=== PATIENT | male | born 1950 | race Caucasian/White ===

== ENCOUNTER 2016-10-28 15:57 | Emergency (ER) | payer BC ==
[2016-10-28] MEDS ORDERED: Sodium Chloride 0.9% 10 ML Syringe FLUSH PRN ×2 (16:05→16:29)
[2016-10-28] MEDS ORDERED: HYDROmorphone 1 MG/ML Syringe IVPUSH ONE (16:16)
[2016-10-28] MEDS ORDERED: Iopamidol 755 MG/ML 50 ML Bottle IVPUSH ONE (16:29)
[2016-10-28] MEDS ORDERED: Iopamidol 755 Mg/ML 100 ML Bottle IVPUSH ONE (16:29)
[2016-10-28] MEDS ORDERED: Sodium Chloride 0.9% 1,000 ML IV ONE (16:53)
--- NOTE | 2016-10-28 17:09 | EDM.PDOC ---
ED HPI GENERAL MEDICAL PROBLEM - General Chief Complaint: Trauma Stated Complaint: INJKURED HEAD AND BACK Time Seen by Provider: 10/28/16 16:04 Source of Information: Reports: Patient History Limitations: Reports: No Limitations - History of Present Illness INITIAL COMMENTS - FREE TEXT/NARRATIVE: 66-year-old male presents for evaluation treatment of injuries sustained from a fall. Injury occurred prior to arrival in the ER. Patient was approximately 8- 10 feet off a ladder onto the ground. Reports he fell backwards onto his back onto some concrete. He has a laceration to his right posterior parietal scalp and left elbow. He is complaining of pain across his lower back. Denies any loss of consciousness, nausea, vomiting, neck pain, chest pain, shortness of breath or abdominal pain. unsure of last tetanus. C-collar applied upon arrival to the ER. Trauma alert minor called. Location: Reports: Back Associated Symptoms: Denies: Chest Pain, Nausea/Vomiting, Shortness of Breath, Syncope Lower Back Pain Score (Numeric/FACES): 6 - Related Data Allergies Allergy/AdvReac Type Severity Reaction Status Date / Time amoxicillin [From Augmentin] AdvReac Headache Verified 10/29/16 07:04 clavulanic acid AdvReac Headache Verified 10/29/16 07:04 [From Augmentin] Home Meds: Home Meds . [No Known Home Meds] 10/28/16 [History] Past Medical History HEENT History: Reports: Impaired Vision Other HEENT History: wears corrective lenses - Past Surgical History Musculoskeletal Surgical History: Reports: Other (See Below) Other Musculoskeletal Surgeries/Procedures:: right total knee replacement Social & Family History - Tobacco Use Smoking Status *Q: Never Smoker Second Hand Smoke Exposure: No - Caffeine Use Caffeine Use: Reports: Coffee - Recreational Drug Use Recreational Drug Use: No Review of Systems - Review of Systems Review Of Systems: See Below Respiratory: Denies: Shortness of Breath Cardiovascular: Denies: Chest Pain GI/Abdominal: Denies: Abdominal Pain Musculoskeletal: Reports: Back Pain (mid to lower back). Denies: Neck Pain Skin: Reports: Wound (left elbow; right posterior parietal scalp) Neurological: Denies: Headache, Syncope ED EXAM, GENERAL - Physical Exam Exam: See Below Exam Limited By: No Limitations General Appearance: Alert, WD/WN, No Apparent Distress Eye Exam: Bilateral Eye: EOMI, PERRL Ears: Normal External Exam Nose: Normal Inspection, No Blood Throat/Mouth: Normal Inspection, Normal Lips, Normal Oropharynx, Normal Voice, No Airway Compromise Neck: Normal Inspection, Other (c-collar in place) Respiratory/Chest: No Respiratory Distress, Lungs Clear, Normal Breath Sounds Cardiovascular: Normal Peripheral Pulses, Regular Rate, Rhythm, No Murmur GI/Abdominal: Normal Bowel Sounds, Soft, Non-Tender Back Exam: Normal Inspection, Vertebral Tenderness (T12-L3) Extremities: Normal Inspection, Normal Range of Motion Neurological: Alert, Oriented, Normal Cognition Psychiatric: Normal Affect, Normal Mood Skin Exam: Warm, Dry, Other (1cm laceration to the left elbow; approximately 6cm "C" shaped laceration to the right posterior parietal scalp) ED TRAUMA PROCEDURES - Laceration/Wound Repair Right Posterior Head Lac/Wound Length In cm: 6 (approximatley 6 cm "C" shaped subcutaneous laceraiton ) Appearance: Subcutaneous, Irregular Distal NVT: Neuro & Vascular Intact, No Tendon Injury Anesthetic Type: Local Local Anesthesia - Lidocaine (Xylocaine): 1% Plain Local Anesthetic Volume: 4cc Skin Prep: Chlorhexidine (Hibiciens), Saline, Sterile Drape Exploration/Debridement/Repair: Wound Explored Closed With: Mitchell # of Sutures: 12 Sterile Dressing Applied: Nurse Tetanus Status Addressed: Yes Complications: No Left Posterior Elbow Lac/Wound Length In cm: 1 Appearance: Subcutaneous, Linear Distal NVT: Neuro & Vascular Intact, No Tendon Injury Local Anesthesia - Lidocaine (Xylocaine): 0.5% Plain, 1% Plain Local Anesthetic Volume: 2cc Skin Prep: Chlorhexidine (Hibiciens), Saline, Sterile Drape Exploration/Debridement/Repair: Wound Explored Closed With: Sutures Suture Size: 4-0 # of Sutures: 2 Suture Type: Nylon, Mattress Sterile Dressing Applied: Nurse Tetanus Status Addressed: Yes Complications: No Course - Vital Signs Last Recorded V/S: Last Vital Signs Temp 36.2 C 10/28/16 16:00 Pulse 87 10/28/16 17:03 Resp 18 10/28/16 17:03 BP 138/95 H 10/28/16 17:03 Pulse Ox 93 L 10/28/16 17:03 - Orders/Labs/Meds Labs: Laboratory Tests 08/22/17 08/22/17 08/22/17 Range/Units 16:10 16:10 16:10 WBC 7.75 (4.23-9.07) K/mm3 RBC 5.78 (4.63-6.08) M/mm3 Hgb 17.1 (13.7-17.5) gm/L Hct 48.2 (40.1-51.0) % MCV 83.4 (79.0-92.2) fl MCH 29.6 (25.7-32.2) pg MCHC 35.5 (32.2-35.5) g/dl RDW Std Deviation 39.5 (35.1-43.9) fL Plt Count 199 (163-337) K/mm3 MPV 9.3 L (9.4-12.3) fl Neut % (Auto) 61.6 (34.0-67.9) % Lymph % (Auto) 25.9 (21.8-53.1) % Jenkins % (Auto) 9.2 (5.3-12.2) % Eos % (Auto) 2.1 (0.8-7.0) Baso % (Auto) 0.4 (0.1-1.2) % Neut # (Auto) 4.78 (1.78-5.38) K/mm3 Lymph # (Auto) 2.01 (1.32-3.57) K/mm3 Jenkins # (Auto) 0.71 (0.30-0.82) K/mm3 Eos # (Auto) 0.16 (0.04-0.54) K/mm3 Baso # (Auto) 0.03 (0.01-0.08) K/mm3 PT 10.7 (8.0-13.0) SECONDS INR 0.98 APTT 23 (22-36) SECONDS Sodium 143 (136-145) mEq/L Potassium 3.5 (3.5-5.1) mEq/L Chloride 106 (98-107) mEq/L Carbon Dioxide 25 (21-32) mEq/L Anion Gap 15.5 H (5-15) BUN 21 H (7-18) mg/dL Creatinine 1.6 H (0.7-1.3) mg/dL Est Cr Clr Drug Dosing 44.53 mL/min Estimated GFR (MDRD) 44 (>60) mL/min BUN/Creatinine Ratio 13.1 L (14-18) Glucose 124 H (80-115) mg/dL Calcium 9.4 (8.5-10.1) mg/dL Total Bilirubin 1.4 H (0.2-1.0) mg/dL AST 28 (15-37) U/L ALT 40 (16-63) U/L Alkaline Phosphatase 66 (46-116) U/L Total Protein 7.0 (6.4-8.2) g/dl Albumin 4.1 (3.4-5.0) g/dl Globulin 2.9 gm/dL Albumin/Globulin Ratio 1.4 (1-2) Lipase 246 (73-393) U/L Urine Color (Yellow) Urine Appearance (Clear) Urine pH (5.0-8.0) Ur Specific [place] (1.005-1.030) Urine Protein (Negative) Urine Glucose (UA) (Negative) Urine Ketones (Negative) Urine Occult Blood (Negative) Urine Nitrite (Negative) Urine Bilirubin (Negative) Urine Urobilinogen (0.2-1.0) Ur Leukocyte Esterase (Negative) Urine RBC (0-5) /hpf Urine WBC (0-5) /hpf Ur Epithelial Cells (0-5) /hpf Urine Bacteria (FEW) /hpf Urine Mucus (FEW) /hpf 10/28/16 Range/Units 20:38 WBC (4.23-9.07) K/mm3 RBC (4.63-6.08) M/mm3 Hgb (13.7-17.5) gm/L Hct (40.1-51.0) % MCV (79.0-92.2) fl MCH (25.7-32.2) pg MCHC (32.2-35.5) g/dl RDW Std Deviation (35.1-43.9) fL Plt Count (163-337) K/mm3 MPV (9.4-12.3) fl Neut % (Auto) (34.0-67.9) % Lymph % (Auto) (21.8-53.1) % Jenkins % (Auto) (5.3-12.2) % Eos % (Auto) (0.8-7.0) Baso % (Auto) (0.1-1.2) % Neut # (Auto) (1.78-5.38) K/mm3 Lymph # (Auto) (1.32-3.57) K/mm3 Jenkins # (Auto) (0.30-0.82) K/mm3 Eos # (Auto) (0.04-0.54) K/mm3 Baso # (Auto) (0.01-0.08) K/mm3 PT (8.0-13.0) SECONDS INR APTT (22-36) SECONDS Sodium (136-145) mEq/L Potassium (3.5-5.1) mEq/L Chloride (98-107) mEq/L Carbon Dioxide (21-32) mEq/L Anion Gap (5-15) BUN (7-18) mg/dL Creatinine (0.7-1.3) mg/dL Est Cr Clr Drug Dosing mL/min Estimated GFR (MDRD) (>60) mL/min BUN/Creatinine Ratio (14-18) Glucose (80-115) mg/dL Calcium (8.5-10.1) mg/dL Total Bilirubin (0.2-1.0) mg/dL AST (15-37) U/L ALT (16-63) U/L Alkaline Phosphatase (46-116) U/L Total Protein (6.4-8.2) g/dl Albumin (3.4-5.0) g/dl Globulin gm/dL Albumin/Globulin Ratio (1-2) Lipase (73-393) U/L Urine Color Light yellow (Yellow) Urine Appearance Clear (Clear) Urine pH 5.5 (5.0-8.0) Ur Specific [place] 1.015 (1.005-1.030) Urine Protein Negative (Negative) Urine Glucose (UA) Negative (Negative) Urine Ketones Trace H (Negative) Urine Occult Blood Negative (Negative) Urine Nitrite Negative (Negative) Urine Bilirubin Negative (Negative) Urine Urobilinogen 0.2 (0.2-1.0) Ur Leukocyte Esterase Negative (Negative) Urine RBC Not seen (0-5) /hpf Urine WBC 0-5 (0-5) /hpf Ur Epithelial Cells 0-5 (0-5) /hpf Urine Bacteria Not seen (FEW) /hpf Urine Mucus Not seen (FEW) /hpf Meds: Medications Discontinued Medications Generic Name Dose Route Start Last Admin Trade Name Freq PRN Reason Stop Dose Admin Diphtheria/Tetanus/Acell Pertussis 0.5 ml 10/28/16 20:13 10/28/16 20:36 Adacel IM 10/28/16 20:14 0.5 ml .ONCE ONE Administration Hydromorphone HCl 1 mg 10/28/16 16:16 10/28/16 16:20 Dilaudid IVPUSH 10/28/16 16:17 1 mg ONETIME ONE Administration Hydromorphone HCl 0.5 mg 10/28/16 19:20 10/28/16 19:25 Dilaudid IVPUSH 10/28/16 19:21 0.5 mg ONETIME ONE Administration Sodium Chloride 1,000 mls @ 999 mls/hr 10/28/16 16:53 10/28/16 17:13 Normal Saline IV 10/28/16 17:53 999 mls/hr ONETIME ONE Administration Iopamidol 100 ml 10/28/16 16:29 10/28/16 16:55 Isovue-370 (76%) IVPUSH 10/28/16 16:30 100 ml ONETIME ONE Administration Lidocaine HCl 50 ml 10/28/16 18:09 10/28/16 19:00 Xylocaine 1% INJECT 10/28/16 18:10 50 ml ONETIME ONE Administration Sodium Chloride 10 ml 10/28/16 16:05 10/28/16 19:33 Saline Flush FLUSH 10 ml ASDIRECTED PRN Administration Keep Vein Open Sodium Chloride 10 ml 10/28/16 16:29 10/28/16 16:55 Saline Flush FLUSH 10 ml ONETIME PRN Administration IV FLUSH - Radiology Interpretation Free Text/Narrative:: CT of the head without contrast impression per Dr. Del Cid 1. Slight soft tissue swelling within the posterior scalp. 2. Air-fluid level within the right maxillary sinus with mild areas of mucosal thickening. Air-fluid level could relate to remained secretions although difficult to exclude sinusitis patient has correlating symptoms. 3. No acute intracranial abnormality identified. CT of the cervical spine without contrast impression per Dr. Del Cid 1. Degenerative change as noted. 2. No fracture or abnormal subluxation is seen on CT study of the cervical spine. CT of the thoracic spine without contrast impression per Dr. Del Cid 1. Slight degenerative change and other incidental findings. Nothing acute is seen on CT study of thoracic spine. CT of the chest with IV contrast impression per Dr. Del Cid 1. Incidental findings. Nothing acute is appreciated on CT study of the chest. CT of the abdomen and pelvis with IV contrast impression per Dr. Del Cid 1. Cyst within the liver and within the left kidney. Small hiatal hernia seen. 2. Other incidental findings. Nothing acute is appreciated on CT study of the abdomen and pelvis. 3. Fracture of L1 which is described on the CT lumbar spine exam. CT of the lumbar spine without contrast impression per Dr. Del Cid 1. Fracture within the she would body of L1 causing fairly severe anterior wedging. retorlisthesis posterior vertebral line is seen by about 8 mm there is causing mild central canal stenosis. Fracture does not appear to extend and posterior elements. Displaced anterior fragment by about 8 mm is seen on L1. 2. Slight degenerative changes noted. No other acute abnormality is appreciated. CT Results Date: 10/28/16 - Re-Assessments/Exams Free Text/Narrative Re-Assessment/Exam: 10/28/16 20:[address] Cristina, orthopedics. Dr. Cristina does not work on the spine. Consulted with Dr. Schultz, orthopedics in [place]. Recommended splinting with a TLSO, pain meds and follow-up with Dr. Schultz as soon as possible. After working with [facility] and other departments, we were unable to get a TLSO brace. We were able to get a Fernández brace. Scalp wound was repaired with mitchell. Elbow laceration was repaired with sutures. Patient tolerated the procedure well. No complications. Will discharge home with medication for pain and the Fernández brace. Call tomorrow to follow-up with Dr. Schultz. Departure - Departure Time of Disposition: 20:29 Disposition: Home, Self-Care 01 Condition: Fair Clinical Impression: L1 vertebral fracture - Discharge Information Instructions: Vertebral Fracture, Lumbar Fracture, Vertebral Fracture, Easy-to- Read Referrals: Heron Patel MD [Primary Care Provider] - Jermaine Schultz MD [Ordering Only Provider] - Forms: ED Department Discharge Additional Instructions: Prescription for Percocet 5- 325mg tabs #20. Prescription for cephalexin 500mg bid x 7 days Given through [facility]. Follow-up with Dr. Schultz as soon or too able to. Call tomorrow morning at 7 AM. Please let them know that you are in the [place] ER last night and have a fracture of L1. Please call [phone]. Please let them know that Dr. Schultz wanted to see you as soon as possible. he very well could see you tomorrow. Percocet 1-2 tabs every 4-6 hours as needed for pain. Do not drive or operate machinery within 12 hours of taking the Percocet. Percocet can be habit-forming , I recommend you take as few of these as needed to control your pain. Fernández brace on at all times. may only remove to shower. He must sleep in the brace. Wash the wounds with gentle soap and water twice a day. Have the mitchell removed in 7 days. Have the sutures removed in 10 days. He may follow-up with your primary care provider or the [facility] located on the side of the hospital is open 8 AM to 5 PM Thursday through Thursday. They will remove the mitchell on the sutures for free. Please call [phone] to schedule with a provider there. Take the cephalexin as prescribed. 1 tab twice a day for 7 days. You will have extra from [facility]. Please return to the ER immediately if your symptoms change or worsen.
--- NOTE | 2016-10-28 17:33 | CT ---
CT thoracic spine Technique: Multiple axial sections through the thoracic spine were obtained. Reconstructed sagittal and coronal images were reviewed. Findings: Vertebral body heights and disc spaces are fairly well preserved. No fracture is identified within the thoracic spine. Posterior ribs appear intact. Cyst is partially seen within the right lobe of the liver measuring roughly 3.2 cm. Mild endplate osteophytes are seen within the lower thoracic spine. No bony central or bony neural foraminal stenosis. No abnormal subluxation is identified. No paravertebral soft tissue swelling is seen. Impression: 1. Slight degenerative change and other incidental findings. Nothing acute is seen on CT study of the thoracic spine. Diagnostic code #2
--- NOTE | 2016-10-28 17:39 | CT ---
CT lumbar spine Technique: Multiple axial sections were obtained through the lumbar spine. Reconstructed sagittal and coronal images were obtained. Findings: Fracture is identified within L1. Fracture is comminuted and involves the vertebral body. There is retrolisthesis of the posterior vertebral line into the central canal by approximately 8 mm. This causes mild central canal stenosis. Anterior wedging is seen with a displaced anterior fragment by approximately 8.5 mm. No additional fracture is seen within the lumbar spine. Slight circumferential disc bulge noted at L3-4. Minimal retrolisthesis is noted of L2 on L3 due to degenerative apophyseal change. Circumferential disc bulge also noted at L2-3. Lesser degenerative change is seen within the apophyseal joints at L3-4. Impression: 1. Fracture within the vertebral body of L1 causing fairly severe anterior wedging. Retrolisthesis posterior vertebral line is seen by about 8 mm causing mild central canal stenosis. Fracture does not appear to extend into the posterior elements. Displaced anterior fragment by about 8.5 mm is seen of L1. 2. Slight degenerative change as noted above. No other acute abnormality is appreciated. Diagnostic code #5
--- NOTE | 2016-10-28 17:42 | CT ---
Head CT Technique: Multiple axial sections through the brain were obtained. Intravenous contrast was not utilized. Comparison: No previous study. Findings: Mild soft tissue swelling is seen posteriorly within the scalp. Ventricles along the basal cisterns and sulci over the convexities are within normal limits for the patient's age. No abnormal parenchymal densities are seen. No evidence of intracranial hemorrhage. No midline shift or mass effect is seen. Bone window settings were reviewed which shows air-fluid level within the right maxillary sinus. Mild mucosal thickening is seen within both maxillary sinuses. Minimal mucosal thickening is noted within the ethmoid sinuses. No acute calvarial abnormality is appreciated. Impression: 1. Slight soft tissue swelling within the posterior scalp. 2. Air-fluid level within the right maxillary sinus with mild areas of mucosal thickening. Air-fluid level could relate to retained secretions although difficult to exclude sinusitis if patient has correlating symptoms. 3. No acute intracranial abnormality is identified. Diagnostic code #3
--- NOTE | 2016-10-28 17:46 | CT ---
CT cervical spine Technique: Multiple axial sections were obtained from above C1 inferiorly to the bottom of T2. Reconstructed sagittal and coronal images were reviewed. Findings: Severe disc space narrowing is noted at C5-6 with vacuum phenomena. Posterior osteophytes and anterior osteophytes are seen at C5-6. Mild disc space narrowing is noted at C6-7 with small posterior osteophytes and small anterior osteophytes. Vertebral body heights are maintained. Mild degenerative change is noted between the dens and anterior arch of C1. Moderate neural foraminal stenosis is seen bilaterally at C6-7. Small air cyst is seen posteriorly within the inferior endplate of C6 which is degenerative in etiology. Moderate to severe bilateral neural foraminal stenosis noted at C5-6. Minimal right-sided neural foraminal stenosis noted at C4-5. Degenerative apophyseal change is scattered throughout the cervical spine. Vertebral bodies and posterior arches are intact with no fracture being seen. No abnormal subluxation is seen. Degenerative spurring is noted within the uncovertebral joints at C5-6 and C6-7. Impression: 1. Degenerative change as noted above. 2. No acute fracture or abnormal subluxation is seen on CT study of the cervical spine. Diagnostic code #2
--- NOTE | 2016-10-28 17:55 | CT ---
CT chest Technique: Multiple axial sections were obtained from above the lung apices inferiorly through the liver. Intravenous contrast was utilized. Findings: Several small mediastinal lymph nodes are seen. No pericardial thickening is seen. Normal enhancing vascular structures are noted. Lung shows incidental dependent atelectasis and mild emphysematous change. No pulmonary contusion is seen. No pneumothorax is identified. No discrete rib fracture is seen. Fracture within L1 again noted as better described on CT lumbar spine study. Impression: 1. Incidental findings. Nothing acute is appreciated on CT study of the chest. Diagnostic code #2 CT abdomen and pelvis Technique: Multiple axial sections were obtained from above the dome of the diaphragm inferiorly through the pubic symphysis. Intravenous contrast was utilized. No oral contrast has been given. Findings: Cyst is identified within the dome of the right lobe of the liver measuring about 3.1 cm in size. Minimal low density lesion is noted more inferiorly within the right lobe of the liver measuring about 2.7 mm statistically due to a small cyst. Spleen is normal. Small hiatal hernia is seen. Adrenal glands show no nodule. Cyst is identified within the left kidney measuring 4.5 cm. Several smaller cortical cyst is also seen within the left kidney. Right kidney appears normal. No renal contusion is seen. Pancreas is within normal limits. Aorta shows no aneurysmal dilatation. No retroperitoneal adenopathy or mesenteric abnormalities are seen. No pelvic mass or adenopathy is seen. No free fluid or inflammatory change is seen within the abdomen or within the pelvis. Appendix is seen which is normal. Bone window settings were reviewed which again shows a fracture of L1. No pelvic fracture is identified. Impression: 1. Cysts within the liver and within the left kidney. Small hiatal hernia is seen. 2. Other incidental findings. Nothing acute is appreciated on CT study of the abdomen and pelvis. 3. Fracture of L1 which is described on CT lumbar spine exam. Diagnostic code #2
[2016-10-28] MEDS ORDERED: Lidocaine 1% 50 ML MDV INJECT ONE (18:09)
[2016-10-28] MEDS ORDERED: HYDROmorphone 0.5 MG/0.5 ML Syringe IVPUSH ONE (19:20)
[2016-10-28] MEDS ORDERED: Diphtheria,Pertussis(Acell),Tetanus Vaccine 0.5 ML SDV IM ONE (20:13)
[2016-10-28 20:14] VITALS: BP 138/95
== END 2016-10-28 20:59 | disposition home or self-care (01) ==
LOC: JD.ED 15:57
DX: S32.019A Unspecified fracture of first lumbar vertebra, initial encounter for closed fracture (principal); H54.7 Unspecified visual loss; Z88.1 Allergy status to other antibiotic agents; Z88.8 Allergy status to other drugs, medicaments and biological substances; W11.XXXA Fall on and from ladder, initial encounter
CPT/HCPCS: 12001; 12002; 36415; 70450; 71260; 72125; 72128; 72131; 74177; 80053; 81001; 83690; 85025; 85610; 85730; 90471; 90715; 96361; 96374; 99284; J1170; J7040; J7050; Q9967; 99285